=== PATIENT | male | born 1940 | race Caucasian/White ===

== ENCOUNTER → 2020-12-26 | Outpatient (CLI) | payer OTHER ==
[~2020-12-26] MED LIST: ASPERDRINK81 MG PO; ATORVASTATIN CA20 MG PO; AUGMENTIN 875875 MG PO; COUMADIN 5 MG TA5 M1 PO; LEVOTHYROXIN0.125 M1 PO; SORINE 80 MG TA80 MG PO
== END ==
LOC: M.ULTRA 12:19
DX: I73.9 Peripheral vascular disease, unspecified (principal); M25.551 Pain in right hip; M25.552 Pain in left hip

== ENCOUNTER → 2021-03-29 | Outpatient (CLI) | payer OTHER ==
[2021-03-29 15:03] LABS: ABSOLUTE BASOPHILS 0.1 thou/uL (0.0-0.2); ABSOLUTE EOSINOPHILS 0.3 thou/uL (0.0-0.7); ABSOLUTE LYMPHOCYTES 1.8 thou/uL (0.8-5.3); ABSOLUTE MONOCYTES 0.8 thou/uL (0.0-1.2); ABSOLUTE NEUTROPHILS 5.1 thou/uL (1.6-8.1); EOSINOPHILS 3.3 %; HEMATOCRIT 33.6 % (42.0-52.0); HEMOGLOBIN 10.9 gm/dL (14.0-18.0); LYMPHOCYTES 22.6 %; MCH 29.2 pg (26.0-34.0); MCHC 32.4 g/dL (28.0-37.0); MONOCYTES 10.1 %; MPV 8.1 fl. (7.2-11.1); NUCLEATED RBCS 0 /100WBC; PLATELET COUNT* 245 thou/uL (150-400); RBC 3.74 mil/uL (4.50-6.00); RDW-CV 14.3 % (10.5-14.5); WBC 8.1 thou/uL (4.0-11.0)
[2021-03-29 15:12] LABS: CALCIUM 9.3 mg/dL (8.5-10.1); CREATININE 1.2 mg/dL (0.6-1.3); POTASSIUM 4.4 mmol/L (3.5-5.1)
[2021-03-29 15:16] LABS: ALBUMIN 3.4 g/dL (3.4-5.0); DIRECT BILIRUBIN 0.2 mg/dL (<0.1-0.3); INR 2.2; PROTIME 21.5 Seconds (9.20-11.50); TOTAL BILIRUBIN 0.6 mg/dL (<0.1-1.0); TOTAL PROTEIN 7.2 g/dL (6.4-8.2)
== END ==
LOC: M.ULTRA 14:14
PROVIDERS: ATTEND Family Medicine
DX: K75.89 Other specified inflammatory liver diseases (principal); N28.1 Cyst of kidney, acquired; R18.8 Other ascites; E03.9 Hypothyroidism, unspecified